=== PATIENT | female | born 1990 | race Caucasian/White ===

== ENCOUNTER 2018-02-19 22:03 | Emergency (ER) | payer SELFPAY ==
[~2018-02-19] VITALS: Ht 172.7 cm; Wt 59.5 kg
[2018-02-19 22:08] VITALS: BP 126/67; PULSE 87; RESP 18; TEMP 97.8; O2SAT 99
[2018-02-19] MEDS ORDERED: LIDOCAINE HCL 1% 30 ML VIAL INFIL ONE (22:15)
[2018-02-19] MEDS ORDERED: LIDOCAINE HCL 1% PF 30 ML VIAL ONE ×2 (22:15→22:16)
[2018-02-19] MEDS ORDERED: TEST200I12 IM (22:15)
--- NOTE | 2018-02-19 22:25 | PD ---
HPI Chief Complaint: Injury Time Seen by Provider: 22:10 Travel History International Travel<30 days: No Contact w/Intl Traveler<30days: No Traveled to known affect area: No History of Present Illness HPI The patient is a 28-year-old female who presents to the emergency department for a puncture wound to the bottom of the right great toe. The patient states she was walking in her house earlier tonight when she stepped on an end unknown object resulting in a small puncture to the bottom of the right great toe. The patient is unsure if there is a retained foreign body in the affected area. The patient states they tried to remove it at home, however, it was painful. She thinks the last tetanus shot was 2010. She denies any bleeding or drainage from the affected area. Symptoms are mild to moderate, no current alleviating or exacerbating factors. Patient was barefoot when the puncture occurred. FORMERLY [facility] Past Medical History Narrative Medical History of medullary thyroid cancer Past Surgical History Narrative Surgical Thyroidectomy, tonsillectomy Social History Tobacco Use: Yes Allergies-Medications (Allergen,Severity, Reaction): Coded Allergies: acetaminophen (Verified Adverse Reaction, Intermediate, Nausea/Vomiting, ) oxycodone (Verified Adverse Reaction, Intermediate, Nausea/Vomiting, ) Reported Meds & Prescriptions Reported Meds & Active Scripts Active Reported Testosterone Cypionate Inj (Testosterone Cypionate) 200 Mg/Ml Inj 200 Mg IM Q14D Review of Systems Except as stated in HPI: all other systems reviewed are Neg General / Constitutional: No: Fever Skin: Positive Other (Puncture wound to the bottom of the right great toe) Neurologic: No: Paresthesia, Sensory Disturbance Physical Exam Narrative GENERAL: Awake, alert, pleasant 28-year-old female who appears her stated age and is in no acute respiratory distress. SKIN: Focused skin assessment warm/dry. HEAD: Atraumatic. Normocephalic. EYES: No injection or drainage. MUSCULOSKELETAL: The patient appears to have a small puncture wound on the bottom of the right great toe. No bleeding or drainage. I cannot palpate a foreign body, however, the patient is extremely tender the affected area. NEUROLOGICAL: Awake and alert. No obvious cranial nerve deficits. Motor grossly within normal limits. Normal speech. PSYCHIATRIC: Appropriate mood and affect; insight and judgment normal. Data Data Last Documented VS Vital Signs Date Time Temp Pulse Resp B/P (MAP) Pulse Ox O2 Delivery O2 Flow Rate FiO2 02/19/18 22:08 97.8 87 18 126/67 (86) 99 Orders Orders Lidocaine 1% Inj (Xylocaine 1% Inj) (02/19/18 22:15) Toe (Min 2vws) (02/19/18 ) Lidocaine Pf 1% Inj (Xylocaine-Mpf 1% In (02/19/18 22:15) Lidocaine Pf 1% Inj (Xylocaine-Mpf 1% In (02/19/18 22:16) Tetanus/Diphtheria Tox Adult (Tetanus/Di (02/19/18 22:30) MDM Medical Decision Making Medical Screen Exam Complete: Yes Emergency Medical Condition: Yes Medical Record Reviewed: Yes Differential Diagnosis Differential diagnosis includes puncture wound, retained foreign body, laceration, fracture, abrasion, infected wound. Narrative Course The patient had a digital block to the right great toe with 1% lidocaine using a 27-gauge needle. X-ray of the right great toe was obtained to evaluate for foreign body. X-ray was positive. Therefore, blunt dissection was used after I discussed the risk and benefits with the patient. The area was draped and prepped in normal sterile fashion, cleaned with Betadine, irrigated with sterile saline, tourniquet was applied to great toe, and under blunt dissection I removed a small metallic object which appear to be a nail. The area was then irrigated again with sterile saline and Betadine, irrigated with sterile saline and a dry sterile dressing was applied. The patient will be placed on Keflex. Tetanus shot was updated. Procedures Procedure Narrative A digital block using 1% lidocaine with a 27-gauge needle was applied to the right great toe. After proper anesthetic effect, a T-shaped incision was made over the foreign body. It was then dissected using blunt dissection, the needle was visualized and were removed under direct visualization. The area was then cleaned sterile saline with sterile saline and Betadine, irrigated, and a dry sterile dressing was applied. Diagnosis Primary Impression: Superficial foreign body, right great toe, initial encounter Patient Instructions: General Instructions Additional Instructions: Irrigate the area twice a day with warm water and soap. Keflex as directed. Follow-up with a primary physician. Return if symptoms worsen or progress. Med/Other Pt SpecificInfo: Prescription(s) given Scripts Cephalexin (Keflex) 500 Mg Capsule 500 MG PO Q6H for Infection for 7 Days, #28 CAP 0 Refills Prov: Aaron Gauthier MD 02/19/18 Disposition: 01 DISCHARGE HOME Condition: Stable Aaron Gauthier MD Feb 19, 2018 22:25
[2018-02-19] MEDS ORDERED: TETANUS/DIPHTHERIA TOXOID ADULT 0.5 ML VIAL IM ONE (22:30)
--- NOTE | 2018-02-19 22:45 | RADRPT ---
EXAM DATE/TIME: 02/19/2018 22:17 [place] COMPARISON: No previous studies available for comparison. INDICATIONS : Evaluate for foreign body. MEDICAL HISTORY : Smoker. SURGICAL HISTORY : None. ENCOUNTER: Initial ACUITY: 2 days PAIN SCORE: 6/10 LOCATION: Right great toe. FINDINGS: Needle stuck in the soft tissues great toe. CONCLUSION: Needle tip as above. Sorin Aguirre MD FACR on February 19, 2018 at 22:39 Board Certified Radiologist. This report was verified electronically.
[2018-02-19] MEDS ORDERED: CEPH-460 PO (23:01)
== END 2018-02-19 23:22 | disposition home or self-care (01) ==
LOC: PHED 22:03
DX: S90.451A Superficial foreign body, right great toe, initial encounter (principal); W22.8XXA Striking against or struck by other objects, initial encounter; Z72.0 Tobacco use; Z23 Encounter for immunization; Z88.6 Allergy status to analgesic agent; Z88.5 Allergy status to narcotic agent
CPT/HCPCS: 10120; 73660; 90471; 90714

== ENCOUNTER 2018-04-28 11:29 | Emergency (ER) | payer SELFPAY ==
[~2018-04-28] VITALS: Ht 172.7 cm; Wt 59.0 kg
[~2018-04-28 11:29] MED LIST: CEPH-460 PO; TEST200I12 IM
[2018-04-28 11:35] VITALS: BP 125/78; PULSE 78; RESP 16; TEMP 97.7; O2SAT 99
[2018-04-28] MEDS ORDERED: KETOROLAC TROMETHAMINE 60 MG/2 ML (IM) VIAL IM ONE (12:15)
[2018-04-28] MEDS ORDERED: PENI500T PO (12:17)
[2018-04-28] MEDS ORDERED: IBUP1TAB7 PO (12:17)
--- NOTE | 2018-04-28 12:18 | PD ---
HPI Chief Complaint: Oral / Dental Pain or Problem Time Seen by Provider: 12:05 Travel History International Travel<30 days: No Contact w/Intl Traveler<30days: No Traveled to known affect area: No History of Present Illness HPI 28-year-old female here with left lower dental pain 3 days. Today she noticed mild facial swelling. No fever chills. No difficulty swallowing. Symptom severity is moderate. Aggravated by hot and cold liquids and chewing. No alleviating factors. PFSH Past Medical History Cancer: Yes (MEDULLARY THYROID) Diminished Hearing: No Tetanus Vaccination: < 5 Years ?: Not Past Surgical History Tonsillectomy: Yes Other Surgery: Yes (THYROIDECTOMY) Social History Alcohol Use: Yes Tobacco Use: Yes (ONE PPD) Substance Use: No Allergies-Medications (Allergen,Severity, Reaction): Coded Allergies: acetaminophen (Verified Adverse Reaction, Intermediate, Nausea/Vomiting, ) oxycodone (Verified Adverse Reaction, Intermediate, Nausea/Vomiting, ) Reported Meds & Prescriptions Reported Meds & Active Scripts Active Reported Testosterone Cypionate Inj (Testosterone Cypionate) 200 Mg/Ml Inj 200 Mg IM Q14D Review of Systems Except as stated in HPI: all other systems reviewed are Neg General / Constitutional: No: Fever Eyes: No: Visual changes HENT: No: Headaches Cardiovascular: No: Chest Pain or Discomfort Respiratory: No: Shortness of Breath Gastrointestinal: No: Abdominal Pain Genitourinary: No: Dysuria Physical Exam Narrative GENERAL: Alert and well-appearing 20-year-old female SKIN: Warm and dry. HEAD: Normocephalic. EYES: No injection or drainage. ENT: Widespread dental decay. Tooth #19 decayed and fractured with surrounding gum erythema. No discernible abscess. No swelling to the floor the mouth. Uvula is midline. Airways patent. NECK: Supple, trachea midline. No lymphadenopathy. CARDIOVASCULAR: Regular rate and rhythm without murmurs, gallops, or rubs. RESPIRATORY: Breath sounds equal bilaterally. No accessory muscle use. Data Data Last Documented VS Vital Signs Date Time Temp Pulse Resp B/P (MAP) Pulse Ox O2 Delivery O2 Flow Rate FiO2 04/28/18 11:35 97.7 78 16 125/78 (94) 99 Orders Orders Ketorolac Inj (Toradol Inj) (04/28/18 12:15) [facility] Medical Decision Making Medical Screen Exam Complete: Yes Emergency Medical Condition: Yes Differential Diagnosis Dental abscess, dental infection, periodontal disease, dental caries Narrative Course 20-year-old female here with dental infection. She is nontoxic appearing. She will be placed on antibiotics and instructed to follow-up with the dentist. Diagnosis Primary Impression: Dental infection Referrals: Primary Care Physician Additional Instructions: Medication as directed. Follow-up with her dentist. Scripts Penicillin V Potassium (Penicillin V Potassium) 500 Mg Tab 500 MG PO Q6H for Infection for 7 Days, #28 TAB 0 Refills Prov: Teodora Beck 04/28/18 Ibuprofen (Ibuprofen) 800 Mg Tab 800 MG PO Q6HR Y for PAIN, #40 TAB 0 Refills Prov: Teodora Beck 04/28/18 Disposition: 01 DISCHARGE HOME Condition: Stable Teodora Beck Apr 28, 2018 12:18
== END 2018-04-28 12:25 | disposition home or self-care (01) ==
LOC: PHEFT 11:29
DX: K04.7 Periapical abscess without sinus (principal); F17.200 Nicotine dependence, unspecified, uncomplicated; Z88.6 Allergy status to analgesic agent; Z88.5 Allergy status to narcotic agent; Z79.899 Other long term (current) drug therapy
CPT/HCPCS: 96372; 99283; J1885

== ENCOUNTER 2018-08-26 20:12 | Inpatient (IN) ==
[2018-08-26] MEDS ORDERED: Ketorolac Inj 30 MG/ML (IVP) Vial IV.PUSH ONE (23:01)
--- NOTE | 2018-08-26 23:07 | ED ---
HPI General Chief complaint: Dental/Oral Stated complaint: dental abscess X1week Time Seen by Provider: 08/26/18 22:51 Source: patient Mode of arrival: ambulatory Limitations: no limitations History of Present Illness HPI narrative: 28yo F here with c/o worsening right jaw pain and swelling. Pt was initially seen 08/09/18 for dental pain and was given amoxicillin. She then returned on 08/24/18 when her right jaw started swelling and antibiotics was changed to clindamycin. Pt was given IVF and decadron and pt said she has been compliant with clindamycin but it is getting worst. Said fever of 101F at home. Said she is now feeling lightheaded and her heart is racing. Had thyroidectomy before. +Decreased PO intake. Pain with opening her mouth. Currently not nauseous or vomiting. Denies any chest pain, sob, abdominal pain , focal weakness or numbness. Denies any IVDA. Related Data Home Medications Medication Instructions Recorded Confirmed amoxicillin 500 mg PO BID 08/24/18 08/26/18 Previous Rx's Medication Instructions Recorded clindamycin HCl 600 mg PO TID 7 Days #42 cap 08/24/18 hydrocodone-acetaminophen 1 tab PO Q6H #12 tab 08/24/18 Allergies Allergy/AdvReac Type Severity Reaction Status Date / Time acetaminophen AdvReac Intermediate Nausea/Vomi Verified 08/26/18 20:16 ting oxycodone AdvReac Intermediate Nausea/Vomi Verified 08/26/18 20:16 ting Review of Systems ROS: all other systems reviewed are negative [facility] Medical History Medical History No significant past medical history (Acute) Surgical History Surgical History H/O partial thyroidectomy (Acute) Family History Family History Other Family history of chronic obstructive pulmonary disease Social History Social History Substance History: No History of Abuse Second Hand Smoke Exposure: Yes Smoking Status: Current every day smoker Tobacco Type: Cigarettes Packs Per Day: 1 Cigarettes Per Day: 20.0 Years Smoked: 8 Pack-Years: 8.00 How Often Do You Have a Drink Containing Alcohol: Never Recent Travel in [facility] within the Last 8 Weeks: No Recent Out of Country Travel within the Last 8 Weeks: No Immunization History Tetanus Immunization: Unsure Exam Narrative Exam Narrative: GENERAL: 28yo F in moderate distress. SKIN: Focused skin assessment warm/dry. HEAD: Atraumatic. Normocephalic. EYES: Pupils equal and round. No scleral icterus. No injection or drainage. ENT: +Edema right angle of mandible. +Trismus. +TTP tooth #31, 32. No periapical fluctuance. Uvula midline, nonerythematous. No drooling. NECK: +Submental edema on right. CARDIOVASCULAR: Regular rate and rhythm. No murmur appreciated. RESPIRATORY: No accessory muscle use. Clear to auscultation. Breath sounds equal bilaterally. GASTROINTESTINAL: Abdomen soft, non-tender, nondistended. MUSCULOSKELETAL: No obvious deformities. No clubbing. No cyanosis. No edema. NEUROLOGICAL: Awake and alert. No obvious cranial nerve deficits. Motor grossly within normal limits. Normal speech. PSYCHIATRIC: Appropriate mood and affect; insight and judgment normal. Course Initial Documented Vital Signs Temperature 98 F 08/26/18 20:16 Pulse Rate 84 08/26/18 20:16 Respiratory Rate 18 08/26/18 20:16 Blood Pressure 117/64 08/26/18 20:16 Pulse Oximetry 100 08/26/18 20:16 Last Documented Vital Signs Temperature 98.9 F 08/27/18 15:51 Pulse Rate 83 08/27/18 15:51 Respiratory Rate 18 08/27/18 15:51 Blood Pressure 112/78 08/27/18 15:51 Pulse Oximetry 99 08/27/18 15:51 Medical Decision Making MDM Narrative Medical decision making narrative: 28yo F with worsening right jaw pain and swelling while on clindamycin. Said dentist wont see her until swelling goes down. Pt's right jaw and submental area is swollen. No drooling but does have trismus so concern for abscess. Labs reviewed, leukocytosis slightly worst than prior at 14.8. Mild hypokalemia at 3.3 replaced orally. TSH elevated at 14.1. Free T3, T4 ordered. negative. negative. Pt given toradol for pain. Sign out to next team to follow up with CT results. Patient has significant perimandibular abcess that is not a candidate for I&D at the present time. Patient needs IV antibiotics and then consultation for I&D Medical Screen Exam Complete: Yes Emergency Medical Condition: Yes Differential Diagnosis Differential Diagnosis: Mandibular abscess vs. cellulitis that failed outpatient treatment Lab Data Result diagrams: 08/26/18 23:20 08/26/18 23:20 Lab Results 08/26/18 08/26/18 08/26/18 Range/Units 23:20 23:20 23:20 CBC w Diff Auto diff final WBC 14.8 H (4.0-11.0) th/mm3 RBC 4.13 (4.00-5.30) mil/mm3 Hgb 13.5 (11.6-15.3) gm/dL Hct 38.7 (35.0-46.0) % MCV 93.8 (80.0-100.0) fL MCH 32.7 (27.0-34.0) pg MCHC 34.9 (32.0-36.0) % RDW 12.2 (11.6-17.2) % Plt Count 240 (150-450) th/mm3 MPV 8.6 (7.0-11.0) fL Neut % (Auto) 77.9 H (16.0-70.0) % Lymph % (Auto) 10.9 (9.0-44.0) % Howell % (Auto) 7.1 (0.0-8.0) % Eos % (Auto) 0.4 (0.0-4.0) % Baso % (Auto) 3.7 H (0.0-2.0) % Neut # (Auto) 11.6 H (1.8-7.7) th/mm3 Lymph # (Auto) 1.6 (1.0-4.8) th/mm3 Howell # (Auto) 1.0 H (0.0-0.9) th/mm3 Eos # (Auto) 0.1 (0.0-0.4) th/mm3 Baso # (Auto) 0.5 H (0.0-0.2) th/mm3 WBC Differential . Differential Comment . Sodium 138 (136-145) meq/L Potassium 3.3 L (3.5-5.1) meq/L Chloride 104 (98-107) meq/L Carbon Dioxide 21.3 (21.0-32.0) meq/L Anion Gap 13 (5-15) meq/L BUN 8 (7-18) mg/dL Creatinine 0.58 (0.50-1.00) mg/dL Estimated GFR Greater than 89 (>89) mL/min Random Glucose 95 (74-106) mg/dL Calcium 8.5 (8.5-10.1) mg/dL TSH 14.100 H (0.358-3.740) uIU/mL Free T4 (0.76-1.46) ng/dL Free T3 (2.18-3.98) pg/mL Beta HCG, Quant (0-5) mIU/mL 08/26/18 08/27/18 Range/Units 23:34 00:03 CBC w Diff WBC (4.0-11.0) th/mm3 RBC (4.00-5.30) mil/mm3 Hgb (11.6-15.3) gm/dL Hct (35.0-46.0) % MCV (80.0-100.0) fL MCH (27.0-34.0) pg MCHC (32.0-36.0) % RDW (11.6-17.2) % Plt Count (150-450) th/mm3 MPV (7.0-11.0) fL Neut % (Auto) (16.0-70.0) % Lymph % (Auto) (9.0-44.0) % Howell % (Auto) (0.0-8.0) % Eos % (Auto) (0.0-4.0) % Baso % (Auto) (0.0-2.0) % Neut # (Auto) (1.8-7.7) th/mm3 Lymph # (Auto) (1.0-4.8) th/mm3 Howell # (Auto) (0.0-0.9) th/mm3 Eos # (Auto) (0.0-0.4) th/mm3 Baso # (Auto) (0.0-0.2) th/mm3 WBC Differential Differential Comment Sodium (136-145) meq/L Potassium (3.5-5.1) meq/L Chloride (98-107) meq/L Carbon Dioxide (21.0-32.0) meq/L Anion Gap (5-15) meq/L BUN (7-18) mg/dL Creatinine (0.50-1.00) mg/dL Estimated GFR (>89) mL/min Random Glucose (74-106) mg/dL Calcium (8.5-10.1) mg/dL TSH (0.358-3.740) uIU/mL Free T4 1.04 (0.76-1.46) ng/dL Free T3 2.90 (2.18-3.98) pg/mL Beta HCG, Quant Less than 1 (0-5) mIU/mL Imaging Data Radiologist's impression: Soft Tissue Neck CT 08/27/18 00:33 CONCLUSION: 1. Right perimandibular abscess along the lower aspect of the mandible measuring up to 2.2 cm in maximal diameter and 9 mm in thickness likely associated with severe dental caries. Also periapical lucencies around multiple left-sided mandibular teeth without evidence for acute abscess. Mild cellulitis over the lower right face and upper right neck. ECG Data EKG Prior to Arrival: No Attestation: I personally reviewed and interpreted this ECG as follows: Interpretation: NSR 73bpm. Normal axis. No ST segment elevation or depression. Discharge Plan Discharge Disposition Patient Disposition: 30 Still Patient Physicians Team ED Provider: Delfino Jane Primary Care Provider: Primary Care Miriam Vicente Attending Provider: Amado Bae Status ED Status: Left Department Discharge Information Discharge Date/Time: 08/27/18 08:07
[2018-08-26 23:28] LABS: Baso # (Auto) 0.5 th/mm3 (0.0-0.2); Baso % (Auto) 3.7 % (0.0-2.0); Eos # (Auto) 0.1 th/mm3 (0.0-0.4); Eos % (Auto) 0.4 % (0.0-4.0); Hematocrit 38.7 % (35.0-46.0); Hemoglobin 13.5 gm/dL (11.6-15.3); Lymph # (Auto) 1.6 th/mm3 (1.0-4.8); Lymph % (Auto) 10.9 % (9.0-44.0); Mean Corpuscular HGB Conc 34.9 % (32.0-36.0); Mean Corpuscular Hemoglobin 32.7 pg (27.0-34.0); Mean Corpuscular Volume 93.8 fL (80.0-100.0); Mean Platelet Volume 8.6 fL (7.0-11.0); Mono % (Auto) 7.1 % (0.0-8.0); Neut # (Auto) 11.6 th/mm3 (1.8-7.7); Neut % (Auto) 77.9 % (16.0-70.0); Platelet Count 240 th/mm3 (150-450); Red Blood Count 4.13 mil/mm3 (4.00-5.30); Red Cell Distribution Width 12.2 % (11.6-17.2); White Blood Count 14.8 th/mm3 (4.0-11.0)
[2018-08-26 23:37] LABS: Chloride 104 meq/L (98-107); Potassium 3.3 meq/L (3.5-5.1); Sodium 138 meq/L (136-145)
[2018-08-26 23:41] LABS: Calcium 8.5 mg/dL (8.5-10.1)
[2018-08-26 23:42] LABS: Anion Gap 13 meq/L (5-15); Blood Urea Nitrogen 8 mg/dL (7-18); Carbon Dioxide 21.3 meq/L (21.0-32.0); Glucose,Random 95 mg/dL (74-106)
[2018-08-26 23:45] LABS: Glomerular Filtration Rate Greater Than 89 mL/min (>89)
[2018-08-26] MEDS ORDERED: Vancomycin Inj 1 GM/200 ML PIGGYBACK IV.SIG SCH (23:45)
[2018-08-27] MEDS ORDERED: Vancomycin Inj 1,000 MG in Sodium Chlor 0.9% Inj 250 ML IV.SIG PRN ×2
[2018-08-27] MEDS ORDERED: Morphine Inj 4 MG/ML Vial IV.PUSH ONE (00:18)
--- NOTE | 2018-08-27 00:52 | CT ---
EXAM DATE: 08/27/2018 12:33 AM EDT AGE/SEX: 28 years / Female INDICATIONS: Dental abscess for one week. CLINICAL DATA: This is the patient's initial encounter. Patient reports that signs and symptoms have been present for 1 week and indicates a pain score of 6/10. MEDICAL/SURGICAL HISTORY: . . Partial thyroidectomy. RADIATION DOSE: 11.10 CTDI (mGy) COMPARISON: . TECHNIQUE: Helical acquisition was performed using a multirow detector CT scanner during the adminis tration of 90 ml Omnipaque 350 (iohexol) nonionic water-soluble contrast as a single exam dose. Usi ng automated exposure control and adjustment of the mA and/or kV according to patient size, radiation dose was kept as low as reasonably achievable to obtain optimal diagnostic quality images. DICOM fo rmat image data is available electronically for review and comparison. FINDINGS: There is a rim-enhancing fluid collection around the inferior aspect of the right mandible measuring up to about 2.2 cm in transverse diameter and about 9 mm in thickness associated with extensive denta l caries. Periapical lucencies noted around multiple teeth in the left mandible without focal fluid c ollection. There is some soft tissue swelling and edema in the right mandibular region and upper right neck christy acteristic of a mild cellulitis. Mildly enlarged submental lymph node measuring up to about 1.2 cm in diameter. Visualized paranasal sinuses are clear. No airway lesions identified. Apices are clear. CONCLUSION: 1. Right perimandibular abscess along the lower aspect of the mandible measuring up to 2.2 cm in max imal diameter and 9 mm in thickness likely associated with severe dental caries. Also periapical luce ncies around multiple left-sided mandibular teeth without evidence for acute abscess. Mild cellulitis over the lower right face and upper right neck. Electronically signed by: Manuel Brennan MD 08/27/2018 12:51 AM EDT
[2018-08-27] MEDS ORDERED: HYDROmorphone PF Inj 2 MG/ML Vial IV.PUSH ONE (02:55)
[2018-08-27] MEDS ORDERED: Penicillin G Sodium Inj 2,500,000 UNITS in Sodium Chlor 0.9% Inj 100 ML IV.SIG ONE (02:55)
[2018-08-27] MEDS ORDERED: Vancomycin Consult Pharmacy OTHER PRN (02:56)
[2018-08-27] MEDS ORDERED: Acetaminophen 325 MG Tablet PO PRN (02:57)
[2018-08-27] MEDS ORDERED: Bisacodyl 10 MG Supp RECTAL PRN (02:57)
[2018-08-27] MEDS: Sod Chloride 0.9% Inj 1,000 ML IV.CONT SCH ×2 (03:16→15:26)
[2018-08-27] MEDS: Ampicillin/Sulbactam Inj 3 GM in Sodium Chloride 0.9% Inj 100 ML IV.SIG SCH ×4 (03:51→20:45)
[2018-08-27] MEDS: HYDROmorphone PF Inj 2 MG/ML Vial IV.PUSH PRN ×4 (06:28→20:44)
[2018-08-27 07:16] LABS: Free T4 (Free Thyroxine) 1.04 ng/dL (0.76-1.46); Triiodothyronine (T3) Free 2.9 pg/mL (2.18-3.98)
[2018-08-27] MEDS: Senna/Docusate Sodium 8.6/50 MG Tablet PO SCH ×2 (08:25→20:45)
[2018-08-27] MEDS: Vancomycin Inj 750 MG in Sodium Chlor 0.9% Inj 250 ML IV.SIG SCH ×2 (10:38→16:41)
--- NOTE | 2018-08-27 13:35 | P.HP ---
History of Present Illness Primary Care Physician: No Primary Care Physician Chief Complaint: Facial pain History of Present Illness: 28-year-old female with no chronic medical illnesses who presented the hospital because of worsening facial swelling and pain. Patient states that she started developing pain in her right lower jaw and dental area 2 weeks ago. She came to the emergency department for evaluation on 08/09/18 and was started on Augmentin, Naprosyn. Patient took the medication until complete and did not improve. Patient did come back to the emergency department on 08/24 and was started on clindamycin 600 mg 3 times daily for 7 days. Patient states that it progressed to get worse and did not improve so he came back to the emergency department yesterday had a CT scan which did show a right periventricular abscess and because that reason it was recommended the patient be admitted for further evaluation and management. Patient has not followed up with an outpatient dentist. States that she can only for going to the emergency dentist and was unable to get an appointment. She states that they would not do any surgery on her anyway due to the abscess formation. Patient denies any fever, chills. She has been having difficulty with eating and chewing. However she is thirsty with increased appetite at this time. - Diagnosis (1) Mandibular abscess Inpatient Certification: I certify that the inpatient services were ordered in accordance with Medicare regulations governing the order. This includes certification that hospital inpatient services are reasonable and necessary and in the case of services not specified as inpatient-only under 42 CFR 419.22(n), that they are appropriately provided as inpatient services in accordance to with the 2-midnight benchmark under 43 CFR 412.3(e) Estimated Total Length of Stay (Days): 2 Plans for Post Hospital Care: Not yet determined Review of Systems All other systems reviewed negative except as stated in HPI Ears, Nose, Mouth, and Throat: Reports dental pain PMFSH - History History Provided By: Patient - Medical History Medical History: Medical History (Last Updated 08/27/18 @ 13:29 by REBECA Shelby) No significant past medical history - Surgical History Surgical History: Surgical History (Last Reviewed 08/26/18 @ 21:31 by Arpita García RN) H/O partial thyroidectomy - Family History Family History: Family History (Last Updated 08/27/18 @ 13:29 by REBECA Shelby) Other Family history of chronic obstructive pulmonary disease - Tobacco History Second Hand Smoke Exposure: Yes Tobacco Use In Past 30 Days: Yes Smoking Status: Current every day smoker Tobacco Type: Cigarettes Packs Per Day: 1 Years Smoked: 8 - Alcohol History How Often Do You Have a Drink Containing Alcohol: Never - Substance Use History Substance History: No History of Abuse - Travel History Recent Travel in the [place] Within the Last 8 Weeks: No Recent Travel Out of the Country Within the Last 8 Weeks: No - Immunization History Tetanus Immunization: Unsure Medications and Allergies Active Medications: Active Medications Acetaminophen (Tylenol) 650 mg PO Q4H PRN PRN Reason: Temp > 100.4 Al Hydroxide/Mg Hydroxide (Milk Of Magnesia Liq) 30 ml PO Q12H PRN PRN Reason: Mild Constipation Bisacodyl (Dulcolax Supp) 10 mg RECTAL DAILY PRN PRN Reason: SEVERE CONSITIPATION Hydromorphone HCl (Dilaudid Pf Inj) 1 mg IV.PUSH Q4H PRN PRN Reason: PAIN 6-10 Last Admin: 08/27/18 10:38 Dose: 1 mg Vancomycin HCl 1,000 mg/ (Sodium Chloride) 250 mls @ 250 mls/hr IV.SIG EXERCISE SCIENCE INSTRUCTOR PRN PRN Reason: EXERCISE SCIENCE INSTRUCTOR Stop: 08/30/18 00:00 Last Infusion: 08/27/18 01:45 Dose: Infused Ampicillin Sodium/Sulbactam (Sodium 3 gm/ Sodium Chloride) 100 mls @ 200 mls/ hr IV.SIG Q6H [facility] Last Infusion: 08/27/18 09:00 Dose: Infused Sodium Chloride (Ns Inj) 1,000 mls @ 100 mls/hr IV.CONT .Q10H [facility] Last Infusion: 08/27/18 06:57 Dose: 100 mls/hr Vancomycin HCl 750 mg/ Sodium (Chloride) 265 mls @ 250 mls/hr IV.SIG Q8H [facility] Last Infusion: 08/27/18 12:12 Dose: Infused Lactulose (Lactulose Liq) 30 ml PO DAILY PRN PRN Reason: SEVERE CONSITIPATION Miscellaneous Information ([facility] [place] [facility] Ordered Lab Info) 0 each OTHER ONCE ONE Stop: 08/28/18 08:46 Ondansetron HCl (Zofran Inj) 4 mg IV.PUSH Q6H PRN PRN Reason: NAUSEA OR VOMITING Last Admin: 08/27/18 08:26 Dose: 4 mg Pharmacy Profile Note (Vancomycin Consult Pharmacy) 1 each OTHER UNSCH PRN PRN Reason: Pharmacy to dose Senna/Docusate Sodium (Ligia-Colace) 1 tab PO BID [facility] Last Admin: 08/27/18 08:25 Dose: Not Given Sennosides (Senokot) 17.2 mg PO Q12H PRN PRN Reason: Moderate Constipation Allergies Allergy/AdvReac Type Severity Reaction Status Date / Time acetaminophen AdvReac Intermediate Nausea/Vomi Verified 08/26/18 20:16 ting oxycodone AdvReac Intermediate Nausea/Vomi Verified 08/26/18 20:16 ting Home Medications Medication Instructions Recorded Confirmed Type amoxicillin 500 mg PO BID 08/24/18 08/26/18 History Exam Vital signs: Vital Signs 08/26/18 20:16 08/26/18 21:35 08/27/18 00:48 Temperature 98 F Pulse Rate 84 78 Respiratory Rate 18 16 16 Blood Pressure 117/64 118/72 Pulse Oximetry 100 100 08/27/18 01:38 08/27/18 01:45 08/27/18 02:30 Temperature Pulse Rate 88 88 Respiratory Rate 16 16 16 Blood Pressure 127/72 119/68 Pulse Oximetry 100 100 08/27/18 04:00 08/27/18 07:06 08/27/18 08:00 Temperature 97.0 F L Pulse Rate 84 85 Respiratory Rate 16 16 18 Blood Pressure 108/60 116/71 Pulse Oximetry 98 08/27/18 12:00 Temperature 97.6 F Pulse Rate 80 Respiratory Rate 18 Blood Pressure 117/63 Pulse Oximetry 98 Intake & Output 08/26/18 08/27/18 08/27/18 18:59 06:59 18:59 Intake Total 450 / 450 365 / 365 Balance 450 / 450 365 / 365 Weight 57.7 kg Intake: IV 450 / 450 365 / 365 Unasyn Inj 3 GM In NS Inj 100 100 / 100 100 / 100 ML @ 200 mls/hr IV.SIG Q6H [facility] Rx#:[id number] Penicillin G Sodium Inj 2,500, 100 / 100 000 UNITS In NS Inj 100 ML @ 200 mls/hr IV.SIG ONCE ONE Rx#: [id number] Vancomycin Inj 1,000 MG In NS 250 / 250 Inj 250 ML @ 250 mls/hr IV.SIG EXERCISE SCIENCE INSTRUCTOR PRN Rx#:[id number] Vancomycin Inj 750 MG In NS Inj 265 / 265 250 ML @ 250 mls/hr IV.SIG Q8H [facility] Rx#:[id number] Narrative: GENERAL: Well-developed, well-nourished, in no acute distress. alert and orientated HEENT: Head is normocephalic without any lesions or masses noted. Patient has obvious edema noted in the right lower jaw. Does have some mild erythema. There is significant pain on palpation. Very hard and granulated in the submandibular region.. Eyes: Pupils equal round reactive to light. Extraocular muscles are intact. Conjunctivae were clear. Buccal mucosa is moist without any masses or lesions NECK: Supple without any masses. Trachea midline no deviation. No JVD, no bruits are appreciated CARDIAC: Regular rhythm, regular rate. S1/S2 are heard. No murmurs gallops or rubs. LUNGS: Clear to auscultation bilaterally. No wheeze, rhonchi or rales. No use of accessory muscles on inspiration or expiration. ABDOMEN: Soft, nontender. Nondistended. Bowel sounds heard in all 4 quadrants. No organomegaly or masses. Negative rebound, negative guarding EXTREMITIES: No edema, pulses are equal bilaterally. No cyanosis or clubbing NEUROLOGY: Mood and affect appear appropriate. Cranial nerves II through XII grossly intact. Muscle strength 5/5 in upper and lower extremities bilaterally. Deep tendon reflexes are 2+ in upper and lower extremities bilaterally. Results - Labs CBC & Chem 7: 08/28/18 06:32 08/28/18 06:32 Labs: Laboratory Results - last 24 hr 08/26/18 08/26/18 08/26/18 23:20 23:20 23:20 CBC w Diff Auto diff final WBC 14.8 H RBC 4.13 Hgb 13.5 Hct 38.7 MCV 93.8 MCH 32.7 MCHC 34.9 RDW 12.2 Plt Count 240 MPV 8.6 Neut % (Auto) 77.9 H Lymph % (Auto) 10.9 [place] % (Auto) 7.1 Eos % (Auto) 0.4 Baso % (Auto) 3.7 H Neut # (Auto) 11.6 H Lymph # (Auto) 1.6 [place] # (Auto) 1.0 H Eos # (Auto) 0.1 Baso # (Auto) 0.5 H WBC Differential . Differential Comment . Sodium 138 Potassium 3.3 L Chloride 104 Carbon Dioxide 21.3 Anion Gap 13 BUN 8 Creatinine 0.58 Estimated GFR Greater than 89 Random Glucose 95 Calcium 8.5 TSH 14.100 H Free T4 Free T3 Beta HCG, Quant 08/26/18 08/27/18 23:34 00:03 CBC w Diff WBC RBC Hgb Hct MCV MCH MCHC RDW Plt Count MPV Neut % (Auto) Lymph % (Auto) [place] % (Auto) Eos % (Auto) Baso % (Auto) Neut # (Auto) Lymph # (Auto) [place] # (Auto) Eos # (Auto) Baso # (Auto) WBC Differential Differential Comment Sodium Potassium Chloride Carbon Dioxide Anion Gap BUN Creatinine Estimated GFR Random Glucose Calcium TSH Free T4 1.04 Free T3 2.90 Beta HCG, Quant Less than 1 - Imaging Impressions Soft Tissue Neck CT 08/27/18 00:33 CONCLUSION: 1. Right perimandibular abscess along the lower aspect of the mandible measuring up to 2.2 cm in maximal diameter and 9 mm in thickness likely associated with severe dental caries. Also periapical lucencies around multiple left-sided mandibular teeth without evidence for acute abscess. Mild cellulitis over the lower right face and upper right neck. Caprini VTE Risk Assessment Caprini VTE Risk Assessment: No/Low Risk (score <= 1) Caprini Risk Assessment Model: Point Value = 1 Point Value = 2 Point Value = 3 Point Value = 5 Age 41-60 Minor surgery BMI > 25 kg/m2 Swollen legs Varicose veins or History of unexplained or recurrent spontaneous Oral contraceptives or hormone replacement Sepsis (< 1 month) Serious lung disease, including pneumonia (< 1 month) Abnormal pulmonary function Acute myocardial infarction Congestive heart failure (< 1 month) History of inflammatory bowel disease Medical patient at bed rest Age 61-74 Arthroscopic surgery Major open surgery (> 45 min) Laparoscopic surgery (> 45 min) Malignancy Confined to bed (> 72 hours) Immobilizing plaster cast Central venous access Age >= 75 History of VTE Family history of VTE Factor V Leiden Prothrombin [id number] Lupus anticoagulant Anticardiolipin antibodies Elevated serum homocysteine Heparin-induced thrombocytopenia Other congenital or acquired thrombophilia Stroke (< 1 month) Elective arthroplasty Hip, pelvis, or leg fracture Acute spinal cord injury (< 1 month) Prophylaxis Regimen: Total Risk Factor Score Risk Level Prophylaxis Regimen 0-1 Low Early ambulation 2 Moderate Order ONE of the following: *Sequential Compression Device (SCD) *Heparin 5000 units SQ BID 3-4 Higher Order ONE of the following medications: *Heparin 5000 units SQ TID *Enoxaparin/Lovenox 40 mg SQ daily (WT < 150 kg, CrCl > 30 mL/min) *Enoxaparin/Lovenox 30 mg SQ daily (WT < 150 kg, CrCl > 10-29 mL/min) *Enoxaparin/Lovenox 30 mg SQ BID (WT < 150 kg, CrCl > 30 mL/min) AND/OR *Sequential Compression Device (SCD) 5 or more Highest Order ONE of the following medications: *Heparin 5000 units SQ TID (Preferred with Epidurals) *Enoxaparin/Lovenox 40 mg SQ daily (WT < 150 kg, CrCl > 30 mL/min) *Enoxaparin/Lovenox 30 mg SQ daily (WT < 150 kg, CrCl > 10-29 mL/min) *Enoxaparin/Lovenox 30 mg SQ BID (WT < 150 kg, CrCl > 30 mL/min) AND *Sequential Compression Device (SCD) Assessment and Plan - Assessment (1) Mandibular abscess Code(s): M27.2 - Inflammatory conditions of jaws Status: Acute - Plan Right perimandibular abscess -Continue vancomycin and Unasyn -Decadron 6 mg IV -Consult oral maxillofacial specialist, discussed with them directly who indicated the patient will require 2 days of IV antibiotics, limited steroids if not improved will need inpatient surgery. But if does improve patient be discharged to his office on Thursday for outpatient procedure -Continue pain control -Advance diet as tolerated Elevated TSH -Patient does have history of partial thyroidectomy -Free T3/free T4 were normal DVT prevention -Sequential compression devices
--- NOTE | 2018-08-27 19:52 | ECG ---
Date Performed: 08/26/2018 Time Performed: 23:23:07 PTAGE: 28 years EKG: Sinus rhythm NORMAL ECG WARNING: DATA QUALITY MAY AFFECT INTERPRETATION NO PREVIOUS TRACING DOCTOR: Domenic Chaudhari Interpretating Date/Time 08/27/2018 19:51:34
[2018-08-28] MEDS: Vancomycin Inj 750 MG in Sodium Chlor 0.9% Inj 250 ML IV.SIG SCH ×3 (02:50→23:30)
[2018-08-28] MEDS: Sod Chloride 0.9% Inj 1,000 ML IV.CONT SCH ×3 (02:50→20:04)
[2018-08-28] MEDS: Ampicillin/Sulbactam Inj 3 GM in Sodium Chloride 0.9% Inj 100 ML IV.SIG SCH ×4 (02:50→20:02)
[2018-08-28] MEDS: HYDROmorphone PF Inj 2 MG/ML Vial IV.PUSH PRN ×5 (02:51→21:35)
[2018-08-28 07:11] LABS: Baso # (Auto) 0.1 th/mm3 (0.0-0.2); Baso % (Auto) 0.7 % (0.0-2.0); Hematocrit 38.8 % (35.0-46.0); Hemoglobin 13.4 gm/dL (11.6-15.3); Lymph # (Auto) 0.7 th/mm3 (1.0-4.8); Lymph % (Auto) 3.7 % (9.0-44.0); Mean Corpuscular HGB Conc 34.4 % (32.0-36.0); Mean Corpuscular Hemoglobin 31.4 pg (27.0-34.0); Mean Corpuscular Volume 91.3 fL (80.0-100.0); Mean Platelet Volume 9.5 fL (7.0-11.0); Mono # (Auto) 0.3 th/mm3 (0.0-0.9); Mono % (Auto) 1.4 % (0.0-8.0); Neut # (Auto) 17.7 th/mm3 (1.8-7.7); Neut % (Auto) 94.2 % (16.0-70.0); Platelet Count 278 th/mm3 (150-450); Red Blood Count 4.25 mil/mm3 (4.00-5.30); Red Cell Distribution Width 12.3 % (11.6-17.2); White Blood Count 18.8 th/mm3 (4.0-11.0)
[2018-08-28 07:20] LABS: Chloride 102 meq/L (98-107); Potassium 4.1 meq/L (3.5-5.1); Sodium 135 meq/L (136-145)
[2018-08-28 07:36] LABS: Alanine Aminotransferase 14 U/L (10-53); Albumin 2.9 g/dL (3.4-5.0); Alkaline Phosphatase 53 U/L (45-117); Anion Gap 10 meq/L (5-15); Aspartate Aminotransferase 9 U/L (15-37); Blood Urea Nitrogen 8 mg/dL (7-18); Calcium 7.6 mg/dL (8.5-10.1); Carbon Dioxide 23.1 meq/L (21.0-32.0); Glomerular Filtration Rate Greater Than 89 mL/min (>89); Glucose,Random 147 mg/dL (74-106); Total Protein 6.8 g/dL (6.4-8.2)
[2018-08-28] MEDS: Senna/Docusate Sodium 8.6/50 MG Tablet PO SCH ×2 (08:10→20:03)
[2018-08-28] MEDS ORDERED: Pharmacy Ordered Lab Info OTHER ONE (08:45)
--- NOTE | 2018-08-28 11:59 | P.PN ---
Subjective Interval history: 28-year-old female who is seen and examined today for follow-up on right perimandibular abscess. Patient states that he does feel mildly improved. She does indicate that the edema has gotten less. Vital signs are stable. Patient remains afebrile Physical Exam Vital signs: Vital Signs 08/27/18 12:00 08/27/18 15:51 08/27/18 20:00 Temperature 97.6 F 98.9 F 98.3 F Pulse Rate 80 83 74 Respiratory Rate 18 18 18 Blood Pressure 117/63 112/78 114/64 Pulse Oximetry 98 99 100 08/28/18 08:00 Temperature 97.1 F L Pulse Rate 80 Respiratory Rate 18 Blood Pressure 117/67 Pulse Oximetry 100 Intake & Output 08/27/18 08/28/18 08/28/18 18:59 06:59 18:59 Intake Total 2130 / 2130 1700 / 1700 100 / 100 Balance 2130 / 2130 1700 / 1700 100 / 100 Weight 58.5 kg Intake: IV 1730 / 1730 1700 / 1700 100 / 100 NS Inj 1,000 ML @ 100 mls/hr IV 1000 / 1000 1000 / 1000 .CONT .Q10H [facility] Rx#:[id number] Unasyn Inj 3 GM In NS Inj 100 200 / 200 200 / 200 100 / 100 ML @ 200 mls/hr IV.SIG Q6H [facility] Rx#:[id number] Vancomycin Inj 750 MG In NS Inj 530 / 530 500 / 500 250 ML @ 250 mls/hr IV.SIG Q8H [facility] Rx#:[id number] Oral 400 / 400 Other: # Voids 2 3 # Bowel Movements 0 Narrative: GENERAL: Well-developed, well-nourished, in no acute distress. alert and orientated HEENT: Head is normocephalic without any lesions or masses noted. Patient has obvious edema noted in the right lower jaw. Does have some mild erythema. There is significant pain on palpation. Very hard and granulated in the submandibular region.. Eyes: Extraocular muscles are intact. Conjunctivae were clear. Buccal mucosa is moist without any masses or lesions NECK: Supple without any masses. Trachea midline no deviation. No JVD, CARDIAC: Regular rhythm, regular rate. S1/S2 are heard. No murmurs gallops or rubs. LUNGS: Clear to auscultation bilaterally. No wheeze, rhonchi or rales. No use of accessory muscles on inspiration or expiration. ABDOMEN: Soft, nontender. Nondistended. Bowel sounds heard in all 4 quadrants. No organomegaly or masses. Negative rebound, negative guarding EXTREMITIES: No edema, pulses are equal bilaterally. No cyanosis or clubbing NEUROLOGY: Mood and affect appear appropriate. Cranial nerves II through XII grossly intact. Moving all extremities, speech is clear Results - Labs CBC & Chem 7: 08/28/18 06:32 08/28/18 06:32 Laboratory Results - last 24 hr 08/28/18 08/28/18 08/28/18 06:32 06:32 06:32 CBC w Diff Auto diff final WBC 18.8 H RBC 4.25 Hgb 13.4 Hct 38.8 MCV 91.3 MCH 31.4 MCHC 34.4 RDW 12.3 Plt Count 278 MPV 9.5 Neut % (Auto) 94.2 H Lymph % (Auto) 3.7 L [place] % (Auto) 1.4 Eos % (Auto) 0.0 Baso % (Auto) 0.7 Neut # (Auto) 17.7 H Lymph # (Auto) 0.7 L [place] # (Auto) 0.3 Eos # (Auto) 0.0 Baso # (Auto) 0.1 WBC Differential . Differential Comment . Sodium 135 L Potassium 4.1 D Chloride 102 Carbon Dioxide 23.1 Anion Gap 10 BUN 8 Creatinine 0.46 L Estimated GFR Greater than 89 Random Glucose 147 H Calcium 7.6 L D Total Bilirubin 0.5 AST 9 L ALT 14 Alkaline Phosphatase 53 Total Protein 6.8 Albumin 2.9 L Vancomycin Trough 19.9 H Assessment and Plan - Assessment (1) Mandibular abscess Code(s): M27.2 - Inflammatory conditions of jaws Status: Acute - Plan Right perimandibular abscess -Continue vancomycin and Unasyn -Continue Decadron 6 mg IV -Consult oral maxillofacial specialist, discussed with them directly who indicated the patient will require 2 days of IV antibiotics, limited steroids if not improved will need inpatient surgery. But if does improve patient be discharged to his office on Thursday morning for outpatient procedure -Continue pain control -Advanced diet as tolerated Leukocytosis -Likely worsening secondary to steroid use -Monitor CBC Elevated TSH, -Patient does have history of partial thyroidectomy -T3 and T4 are normal DVT prevention -Sequential compression devices
[2018-08-29] MEDS: HYDROmorphone PF Inj 2 MG/ML Vial IV.PUSH PRN ×6 (01:45→21:38)
[2018-08-29] MEDS: Ampicillin/Sulbactam Inj 3 GM in Sodium Chloride 0.9% Inj 100 ML IV.SIG SCH ×4 (02:14→21:25)
[2018-08-29] MEDS: Sod Chloride 0.9% Inj 1,000 ML IV.CONT SCH ×2 (07:56→18:05)
[2018-08-29] MEDS: Senna/Docusate Sodium 8.6/50 MG Tablet PO SCH ×2 (08:11→21:27)
--- NOTE | 2018-08-29 08:43 | P.PN ---
Subjective Interval history: 28-year-old female who is seen and examined today for follow-up on vika- mandibular abscess. Patient states that it is still very sore and painful. Has gotten a little bit larger in a focal area. Still having significant amount of pain. Vital signs are stable. Patient remains afebrile. Physical Exam Vital signs: Vital Signs 08/28/18 12:00 08/28/18 16:00 08/28/18 20:00 Temperature 97.3 F L 97.0 F L 96.6 F L Pulse Rate 71 73 76 Respiratory Rate 16 16 16 Blood Pressure 110/71 118/81 111/69 Pulse Oximetry 100 100 100 08/29/18 00:00 Temperature 96.7 F L Pulse Rate 76 Respiratory Rate 16 Blood Pressure 104/73 Pulse Oximetry 100 Intake & Output 08/28/18 08/29/18 08/29/18 18:59 06:59 18:59 Intake Total 2185 / 2185 1465 / 1465 Balance 2185 / 2185 1465 / 1465 Weight 59.4 kg Intake: IV 1465 / 1465 1465 / 1465 NS Inj 1,000 ML @ 100 mls/hr IV 1000 / 1000 1000 / 1000 .CONT .Q10H [facility] Rx#:[id number] Unasyn Inj 3 GM In NS Inj 100 200 / 200 200 / 200 ML @ 200 mls/hr IV.SIG Q6H [facility] Rx#:[id number] Vancomycin Inj 750 MG In NS Inj 265 / 265 265 / 265 250 ML @ 250 mls/hr IV.SIG Q12H [facility] Rx#:[id number] Oral 720 / 720 Other: # Voids 4 3 # Bowel Movements 0 Narrative: GENERAL: Well-developed, well-nourished, in no acute distress. alert and orientated HEENT: Head is normocephalic without any lesions or masses noted. Patient's right jaw does have a more focal and darker erythematous area. Area is now fluctuant. There is significant pain on palpation. Eyes: Extraocular muscles are intact. Conjunctivae were clear. Buccal mucosa is moist without any masses or lesions NECK: Supple without any masses. Trachea midline no deviation. No JVD, CARDIAC: Regular rhythm, regular rate. S1/S2 are heard. No murmurs gallops or rubs. LUNGS: Clear to auscultation bilaterally. No wheeze, rhonchi or rales. No use of accessory muscles on inspiration or expiration. ABDOMEN: Soft, nontender. Nondistended. Bowel sounds heard in all 4 quadrants. No organomegaly or masses. Negative rebound, negative guarding EXTREMITIES: No edema, pulses are equal bilaterally. No cyanosis or clubbing NEUROLOGY: Mood and affect appear appropriate. Cranial nerves II through XII grossly intact. Moving all extremities, speech is clear Results - Labs CBC & Chem 7: 08/28/18 06:32 08/28/18 06:32 Laboratory Results - last 24 hr 08/28/18 06:32 Vancomycin Trough 19.9 H Assessment and Plan - Assessment (1) Mandibular abscess Code(s): M27.2 - Inflammatory conditions of jaws Status: Acute - Plan Right perimandibular abscess -Continue vancomycin and Unasyn -Status post Decadron 6 mg IV -Consult oral maxillofacial specialist, -Continue pain control -Advanced diet as tolerated Leukocytosis -Likely worsening secondary to steroid use -Monitor CBC Elevated TSH, -Patient does have history of partial thyroidectomy -T3 and T4 are normal DVT prevention -Sequential compression devices
[2018-08-29] MEDS: Vancomycin Inj 750 MG in Sodium Chlor 0.9% Inj 250 ML IV.SIG SCH ×2 (11:48→23:57)
[2018-08-30 00:15] VITALS: PULSE 68
[2018-08-30] MEDS: HYDROmorphone PF Inj 2 MG/ML Vial IV.PUSH PRN ×2 (00:58→05:00)
[2018-08-30] MEDS: Ampicillin/Sulbactam Inj 3 GM in Sodium Chloride 0.9% Inj 100 ML IV.SIG SCH (03:35)
[2018-08-30] MEDS: Sod Chloride 0.9% Inj 1,000 ML IV.CONT SCH (04:56)
--- NOTE | 2018-08-30 08:03 | P.DS ---
Date of admission: 08/27/18 10:57 Primary care physician: No Primary Care Physician Attending physician on discharge: Amado Bae Anticipated date of discharge: 08/30/18 Brief History from admission: 28-year-old female with no chronic medical illnesses who presented the hospital because of worsening facial swelling and pain. Patient states that she started developing pain in her right lower jaw and dental area 2 weeks ago. She came to the emergency department for evaluation on 08/09/18 and was started on Augmentin, Naprosyn. Patient took the medication until complete and did not improve. Patient did come back to the emergency department on 08/24 and was started on clindamycin 600 mg 3 times daily for 7 days. Patient states that it progressed to get worse and did not improve so he came back to the emergency department yesterday had a CT scan which did show a right periventricular abscess and because that reason it was recommended the patient be admitted for further evaluation and management. Patient has not followed up with an outpatient dentist. States that she can only for going to the emergency dentist and was unable to get an appointment. She states that they would not do any surgery on her anyway due to the abscess formation. Patient denies any fever, chills. She has been having difficulty with eating and chewing. However she is thirsty with increased appetite at this time. DS: Diagnosis - Discharge Diagnosis (1) Mandibular abscess Status: Acute DS: Summary Hospital Course: 28-year-old who presented to the hospital because of right facial swelling and edema. Patient has CT scan done which did indicate vika- mandibular abscess. Patient was recommend admission by ER physician with IV antibiotics. I contacted the oral maxilla facial specialist to recommend that the patient undergo IV antibiotics for at least 48 hours, Decadron 6 mg IV for at least 3 doses and if patient continues to improve patient can be discharged Thursday morning for surgical procedure in his office. Patient did tolerate treatment well during her hospitalization. Area did improve with more focal abscess formation. Patient is clinically stable at this time. Arrangements have been made to go to Dr. Layton's office. Case management has arranged transportation. - Time Spent with Patient Total time spent providing and/or coordinating discharge services: Greater than 30 minutes - Quality: VTE Deep Vein Thrombosis/Pulmonary Embolism Present on Admission: No Exam Vital signs: Vital Signs 08/29/18 12:00 08/29/18 16:00 08/29/18 20:00 Temperature 97.8 F 96.5 F L 98.4 F Pulse Rate 71 69 72 Respiratory Rate 20 20 16 Blood Pressure 112/61 116/74 115/75 Pulse Oximetry 100 100 99 08/30/18 00:00 08/30/18 06:14 Temperature 98.5 F Pulse Rate 68 Respiratory Rate 16 18 Blood Pressure 103/64 Pulse Oximetry 100 Intake & Output 08/29/18 08/30/18 08/30/18 18:59 06:59 18:59 Intake Total 1465 / 1465 1686 / 1686 Balance 1465 / 1465 1686 / 1686 Weight 57.6 kg Intake: IV 1465 / 1465 1465 / 1465 NS Inj 1,000 ML @ 100 mls/hr IV 1000 / 1000 1000 / 1000 .CONT .Q10H ANEN Rx#:[id number] Unasyn Inj 3 GM In NS Inj 100 200 / 200 200 / 200 ML @ 200 mls/hr IV.SIG Q6H ANNE Rx#:[id number] Vancomycin Inj 750 MG In NS Inj 265 / 265 265 / 265 250 ML @ 250 mls/hr IV.SIG Q12H ANNE Rx#:[id number] Oral 221 / 221 Other: # Voids 1 1 Narrative: GENERAL: Well-developed, well-nourished, in no acute distress. alert and orientated HEENT: Head is normocephalic without any lesions or masses noted. Patient's right jaw does have a more focal and darker erythematous area. Area is now fluctuant. There is significant pain on palpation. Eyes: Extraocular muscles are intact. Conjunctivae were clear. Buccal mucosa is moist without any masses or lesions NECK: Supple without any masses. Trachea midline no deviation. No JVD, CARDIAC: Regular rhythm, regular rate. S1/S2 are heard. No murmurs gallops or rubs. LUNGS: Clear to auscultation bilaterally. No wheeze, rhonchi or rales. No use of accessory muscles on inspiration or expiration. ABDOMEN: Soft, nontender. Nondistended. Bowel sounds heard in all 4 quadrants. No organomegaly or masses. Negative rebound, negative guarding EXTREMITIES: No edema, pulses are equal bilaterally. No cyanosis or clubbing NEUROLOGY: Mood and affect appear appropriate. Cranial nerves II through XII grossly intact. Moving all extremities, speech is clear Results Procedures completed during hospitalization: None - Impressions ITS Impressions Soft Tissue Neck CT 08/27/18 00:33 CONCLUSION: 1. Right perimandibular abscess along the lower aspect of the mandible measuring up to 2.2 cm in maximal diameter and 9 mm in thickness likely associated with severe dental caries. Also periapical lucencies around multiple left-sided mandibular teeth without evidence for acute abscess. Mild cellulitis over the lower right face and upper right neck. Discharge Plan - Discharge Disposition Patient Disposition: Discharge Home - Discharge Condition Condition: Stable - Discharge Order Discharge Orders: Discharge Order (Routine); Ordered 08/30/18 Ordered By: Riccardo Pascual - Discharge Details Anticipated Discharge Date: 08/29/18 Discharge Comment: Discharge tomorrow 08/30/18 prior to 9 AM to go to Dr[address] Layton's office - Physicians Team Primary Care Provider: Primary Care Jules,Miriam Attending Provider: Amado Bae
[2018-08-30 08:34] VITALS: BP 114/72; RESP 16; TEMP 97.3; O2SAT 94
[2018-08-30] MEDS ORDERED: Pharmacy Ordered Lab Info OTHER ONE (10:45)
== END 2018-08-30 08:57 | disposition home or self-care (01) ==
LOC: PHEDA 20:12 → PHED 20:12 → PH3 08-27 08:04
PROVIDERS: ADMIT Hospitalist; ATTEND Hospitalist